=== PATIENT | male | born 1970 | race African-American/Black ===

== ENCOUNTER 2021-03-23 18:20 | Emergency (ER) | payer OTHER ==
[2021-03-23] MEDS ORDERED: Morphine 4 MG/ML VIAL ONE (18:55)
[2021-03-23] MEDS ORDERED: Ketorolac Tromethamine 30 MG/ML VIAL ONE (18:56)
== END 2021-03-23 23:27 | disposition short-term general hospital (02) ==
LOC: CSHERS 18:20 → EEVIPCON 18:20 → CSHERS 23:27
DX: S02.66XA Fracture of symphysis of mandible, initial encounter for closed fracture (principal); I10 Essential (primary) hypertension; W50.0XXA Accidental hit or strike by another person, initial encounter; Y93.67 Activity, basketball
CPT/HCPCS: 70486; 96365; 96366; 96375; J1885; J2270; J3490